=== PATIENT | male | born 1980 | race Caucasian/White ===

== ENCOUNTER 2020-02-01 19:57 | Observation (INO) | payer SELFPAY ==
[~2020-02-01 19:57] MED LIST: Iopamidol-370 76% 500 ML 1 ML ONE
[2020-02-01 20:17] LABS: #Eosinphils 0.2 thou/uL (0.0-0.7); #Lymphocytes 2.3 thou/uL (1.20-3.40); #Monocytes 0.7 thou/uL (0.11-0.59); #Neutrophils 3.8 thou/uL (1.40-6.50); %Basophils 0.5 % (0.0-1.0); %Eosinophils 3.1 % (0.0-10.0); %Lymphocytes 32.6 % (21.0-51.0); %Monocytes 9.5 % (0.0-10.0); %Neutrophils 54.3 % (42.0-75.0); Hemoglobin 13.6 g/dL (14.0-18.0); Mean Corpuscular HGB CONC 35.5 g/dL (32.0-36.0); Mean Corpuscular Hemoglobin 33.4 pg (27.0-31.0); Mean Corpuscular Volume 94.2 fL (78.0-98.0); Mean Platelet Volume 9.1 fL (7.4-10.4); Platelet Count 184 thou/uL (130-400); RBC Distribution Width 13.9 % (11.5-14.5); Red Blood Cell (RBC) Count 4.06 mill/uL (4.70-6.10)
[2020-02-01 20:38] LABS: ALT (SGPT) 20 U/L (8-55); AST (SGOT) 10 U/L (5-34); Albumin 3.8 g/dL (3.5-5.0); Alkaline Phosphatase 62 U/L (40-110); Anion Gap 11 mmol/L (10-20); BUN (Urea Nitrogen) 10 mg/dL (8.9-20.6); Bilirubin, Total 0.5 mg/dL (0.2-1.2); Calc. Creatinine Clearance 0 mL/min (70-130); Calcium 8.5 mg/dL (7.8-10.44); Carbon Dioxide 26 mmol/L (22-29); Chloride 104 mmol/L (98-107); Estimated GFR-MDRD 79; Globulin 2.9 g/dL (2.4-3.5); Glucose 109 mg/dL (70-105); Potassium 3.7 mmol/L (3.5-5.1); Protein, Total 6.7 g/dL (6.0-8.3); Sodium 137 mmol/L (136-145)
[2020-02-01] MEDS ORDERED: Morphine 4 MG/ML VIAL ONE ×2 (21:05→21:50)
[2020-02-01] MEDS ORDERED: Ondansetron PF 4 MG/2 ML Vial ONE (21:05)
--- NOTE | 2020-02-01 22:12 | CT ---
CT ABDOMEN AND PELVIS WITH IV CONTRAST: History: Right abdominal pain. Comparison: None. FINDINGS: Lung bases are clear. Liver, spleen, pancreas unremarkable. The gallbladder is mildly distended. There is pericholecystic fluid. No gallstones are identified. Ho wever, cholesterol stones would not be apparent on CT. No biliary duct dilatation. Small bowel loops normal caliber. The right colon is folded and cecum is the right upper abdomen. Shanthi endix is not definitely identified, however, there are no secondary signs of appendicitis. There is a large left inguinal hernia. Left colon and sigmoid colon herniates into this large inguina l hernia and resides within the left scrotum. No definite evidence of bowel obstruction identified. Kidneys and urinary tract unremarkable. There appears to be incomplete rotation of the left kidney. U rinary bladder shows mild bladder wall thickening. Correlate for cystitis. The prostate is mildly pro minent. Aorta normal caliber. No mass. No free fluid. IMPRESSION: 1. Large left inguinal hernia. Left colon and sigmoid colon herniate into this defect and colon is se en within the left scrotum. No definite bowel obstruction apparent. 2. The gallbladder is distended and there is pericholecystic fluid and edema. Correlate with gallblad mariola ultrasound. POS: AGW
[2020-02-01 23:06] LABS: Bilirubin Negative (Negative); Blood, Urine Negative (Negative); Clarity Clear (Clear); Glucose, Urine (Dipstick) Normal (Negative); Leukocyte Negative Leu/uL (Negative); Nitrite Negative (Negative); Protein, Urine (Dipstick) Negative (Neg-Trace); Urobilinogen Normal mg/dL (Less than 2)
--- NOTE | 2020-02-01 23:49 | ULT ---
GALLBLADDER ULTRASOUND: Indication: Abdominal pain. FINDINGS: The gallbladder is distended. Dense echogenic sludge and gravel layered within the gallbladder. Gallb ladder wall is mildly thickened and there is pericholecystic edema consistent with the CT findings. Common bile duct is normal caliber measured at 5 mm. Visualized pancreas unremarkable. Liver shows minimal increase in the intrahepatic biliary ducts. The liver is otherwise unremarkable. The right kidney is unremarkable. Positive Claudio sign is described. IMPRESSION: Abnormal gallbladder ultrasound. The gallbladder is distended. Dense sludge, gravel, and small stones layer dependently in the gallbladder. There is gallbladder wall thickening and pericholecystic edema with positive Claudio's sign. POS: AGW
[2020-02-02] MEDS ORDERED: Morphine 2 MG/ML SYRINGE SLOW IVP PRN ×2 (00:06→10:59)
[2020-02-02] MEDS ORDERED: Ondansetron ODT 4 MG TAB SL PRN (00:06)
[2020-02-02] MEDS: Sodium Chloride 0.9% 1,000 ML IV SCH ×2 (00:44→05:54)
[2020-02-02] MEDS: Morphine 4 MG/ML VIAL SLOW IVP PRN ×2 (00:46→05:55)
[2020-02-02] MEDS: Ondansetron PF 4 MG/2 ML Vial IVP PRN ×2 (00:46→05:54)
[2020-02-02] MEDS: Piperacillin/Tazobactam 3.375 GM in Sodium Chloride 0.9% 100 ML IVPB SCH ×2 (00:47→11:39)
[2020-02-02 01:07] VITALS: BMI 24.3
[2020-02-02] MEDS ORDERED: Lidocaine 1% w/Epinephrine 1:100K 20 ML VIAL ONE (06:54)
[2020-02-02] MEDS ORDERED: Bupivacaine 0.25% HCL 30 ML VIAL ONE (06:54)
[2020-02-02] MEDS ORDERED: Fentanyl 100 MCG/2 ML VIAL ONE ×2 (07:13→10:14)
[2020-02-02] MEDS ORDERED: Lidocaine 2% Jelly 5 ML TUBE ONE (07:13)
--- NOTE | 2020-02-02 07:56 | HP ---
CHIEF COMPLAINT: Right-sided abdominal pain. HISTORY OF PRESENT ILLNESS: Mr. Mata is a 39-year-old man, who has a several- day history of right-sided abdominal pain, which has been growing steadily worse. He also has nausea and vomiting, especially with any attempts to eat. He denies any fevers or chills. He came to the emergency room, where he was diagnosed with acute cholecystitis based on CT and ultrasound findings. He has received pain medications, but continues to have pain in the right upper quadrant. PAST MEDICAL HISTORY: HIV, which is well controlled and hypertension. PAST SURGICAL HISTORY: None. FAMILY HISTORY: Noncontributory. SOCIAL HISTORY: He smokes half pack a day. Does not drink heavily or use illicit drugs. ALLERGIES: HE HAS NO KNOWN DRUG ALLERGIES. OUTPATIENT MEDICATIONS: Include 1. Amlodipine 10 mg p.o. daily. 2. Biktarvy 50/200/25 mg p.o. daily. REVIEW OF SYSTEMS: Ten system review of systems is negative except per HPI. PHYSICAL EXAMINATION: VITAL SIGNS: The patient is afebrile. Heart rate 60, respirations 16, 98% saturated on room air, and blood pressure 131/85. GENERAL: Reveals a pleasant man, in no acute distress. He is not flushed or toxic in appearance. He is not jaundiced or icteric. HEENT: Unremarkable. NECK: Supple without lymphadenopathy or thyroid nodules. HEART: Regular in its rate and rhythm without murmurs, rubs, or gallops. LUNGS: Clear to auscultation bilaterally. ABDOMEN: Soft and nondistended. He has severe tenderness in the right upper quadrant, but is otherwise nontender to palpation. There is fullness in the right upper quadrant consistent with a distended gallbladder. He has a large left inguinal hernia, which is only partially reducible. He states that this has been out for some time, and he has had a hernia for seven years, but it does not bother him except for when he is active. EXTREMITIES: Warm and well perfused without edema. NEURO: No focal deficits. PSYCHIATRIC: Alert, oriented, and appropriate. LABORATORY DATA: White count is normal. LFTs are normal. CT and ultrasound images are reviewed, and I agree with the written report. He has a very distended thick-walled gallbladder with pericholecystic fluid, but the bile duct is normal caliber. On ultrasound, he has a lot of sludge as well as some shadowing stones. ASSESSMENT: Acute cholecystitis and chronic large left inguinal hernia. I have recommended laparoscopic cholecystectomy for symptomatic relief of cholecystitis. There is about a 30% chance that the gallbladder has bacteria in it, so I do not recommend repair of his large chronic left inguinal hernia under the same anesthesia due to the risk of mesh infection. However, his left inguinal hernia should be repaired as soon as it can be scheduled electively. He will likely require preoperative bowel prep due to the large amount of colon in the hernia. The patient is in agreement with this plan. The inherent risks of laparoscopic cholecystectomy were discussed with him. These include, but are not limited to, bleeding, infection, risks of anesthesia, damage to nearby structures including bowel, liver, and bile duct, and need for open surgery. He understands and accepts these risks and wishes to proceed. All his questions were answered. He is on scheduled [facility]. Job ID: [id number] MTDD
[2020-02-02] MEDS ORDERED: Piperacillin/Tazobactam 3.375 GM VIAL ONE (08:39)
[2020-02-02] MEDS ORDERED: PROVENTIL INHALER 6.7 G (200 INHALATIONS) INH PRN (09:47)
[2020-02-02] MEDS ORDERED: Ondansetron HCl/PF 4 MG/2 ML Vial IVP PRN (09:47)
[2020-02-02] MEDS ORDERED: Promethazine HCl 25 MG/ML VIAL IM PRN (09:47)
[2020-02-02] MEDS ORDERED: Promethazine HCl 25 MG/ML VIAL SLOW IVP PRN (09:47)
[2020-02-02] MEDS ORDERED: traMADol HCl 50 MG TAB PO PRN ×4 (09:54→10:59)
[2020-02-02] MEDS ORDERED: Ibuprofen 200 MG TAB PO PRN ×2 (09:54→10:59)
[2020-02-02] MEDS ORDERED: Acetaminophen 325 MG TAB PO PRN ×4 (09:54→10:59)
[2020-02-02] MEDS ORDERED: HYDROcodone/Acetaminophen 5/325 mg Tablet PO PRN ×4 (09:54→10:59)
[2020-02-02] MEDS ORDERED: Ibuprofen 600 MG TAB PO PRN ×2 (09:54→10:59)
[2020-02-02] MEDS ORDERED: Ibuprofen 800 MG TAB PO PRN ×2 (09:54→10:59)
[2020-02-02] MEDS ORDERED: Morphine 4 MG/ML VIAL SLOW IVP PRN ×2 (09:54→10:59)
[2020-02-02] MEDS ORDERED: Promethazine 25 MG TAB PO PRN ×2 (09:57→10:59)
--- NOTE | 2020-02-02 10:08 | PDOC.OP ---
Operative Note - Operative Note Operative Note: DATE OF PROCEDURE: 02/02/2020 PROCEDURES: Laparoscopic cholecystectomy. SURGEON: Mela Sultana M.D. PREOPERATIVE DIAGNOSIS: Cholelithiasis and cholecystitis POSTOPERATIVE DIAGNOSIS: Cholelithiasis and cholecystitis FINDINGS: Extremely distended edematous thick-walled gallbladder. HISTORY: Patient with symptoms and radiographic findings of acute cholecystitis. Laparoscopic cholecystectomy was recommended for symptomatic relief. Preoperative LFTs were normal and bile duct was normal caliber on preoperative imaging. PROCEDURE: After informed consent was obtained and appropriate preoperative antibiotics were administered, the patient was taken to the operating room and placed in the supine position and general endotracheal anesthesia was administered. The stomach was decompressed with an OG tube and the abdomen was prepped and draped in standard sterile fashion. Local anesthesia was infused to the skin and subcutaneous tissues at the umbilical level. A transverse skin incision was made. The fascia was elevated and a Veress needle was placed into the abdominal cavity without difficulty. Opening pressure was less than 5 but rapidly sunita to 15 suggesting insufflation into the preperitoneal space. Veress needle was withdrawn and dissection carried down to the fascia which was incised. Stay sutures were placed and the peritoneum was grasped elevated into the wound and incised under direct vision. A trocar was placed into the peritoneal cavity and carbon dioxide gas insufflated intra-abdominal pressure of 15 which the patient tolerated well. The abdominal cavity was carefully examined. There was no evidence of Veress needle or of trocar injury. Local anesthesia was infused to the skin and subcutaneous tissues at the epigastric, right upper quadrant, and right lateral abdominal sites and trocars were placed under direct vision of the laparoscope. The gallbladder was massively distended and too taut to grasp so over 100 mL of clear green bile were aspirated following which the gallbladder was soft enough to grasp. The fundus of the gallbladder was grasped and retracted superiorly. The infundibulum was grasped and retracted laterally. The serosa was stripped inferiorly at the level of the neck of the gallbladder exposing the cystic duct and artery which were traced clearly to their insertion in the gallbladder. Critical view of safety was obtained and the cystic duct and artery were clipped and divided between clips. The gallbladder was then dissected free of the gallbladder bed using hook electrocautery. Prior to complete removal of the gallbladder from the gallbladder bed, the area of the cystic duct and artery stumps was examined. The clips were in good position completely across these structures and there was no bleeding and no leakage of bile. The gallbladder was then placed into an EndoCatch bag and drawn out through the epigastric incision. This required extension of the skin incision as the thickened gallbladder was too large to remove through the original skin incision. The epigastric trocar was replaced and the operative site easily irrigated to clear. There was no significant bleeding or spillage of bile. The epigastric trocar was removed and the fascia closed under direct laparoscopic vision with a 0 Vicryl suture on a GraNee needle in a [id number] manner with excellent technical result. The right upper quadrant and right lateral abdominal trocars were removed and hemostasis verified. Carbon dioxide gas was allowed to desufflate through the umbilical trocar which was then removed. The fascia was closed with the stay suture with excellent technical result. The skin incisions were closed with 4- 0 subcuticular Monocryl sutures and Dermabond dressings were placed. The patient was extubated and taken to the recovery room in good condition. There were no complications. ESTIMATED BLOOD LOSS: Minimal. SPECIMEN : Gallbladder and contents.
[2020-02-02] MEDS ORDERED: Ondansetron PF 4 MG/2 ML Vial IVP PRN (10:59)
[2020-02-02] MEDS ORDERED: Piperacillin/Tazobactam 3.375 GM in Sodium Chloride 0.9% 100 ML IVPB SCH ×3 (11:00→15:00)
[2020-02-02] MEDS: Morphine 2 MG/ML SYRINGE SLOW IVP PRN ×2 (11:13→16:32)
[2020-02-02] MEDS ORDERED: Polyethylene Glycol 3350 17 GM Packet PO SCH (11:45)
[2020-02-02] MEDS ORDERED: PHENYLEPHRINE-NS 100 MCG/ML 10 ML SYRINGE ONE (11:47)
[2020-02-02] MEDS ORDERED: Lidocaine 1% PF 5 ML VIAL ONE (11:47)
[2020-02-02] MEDS ORDERED: Ondansetron PF 4 MG/2 ML Vial ONE (11:47)
[2020-02-02] MEDS ORDERED: Glycopyrrolate 0.2 MG/ML 5 ML SYRINGE ONE ×2 (11:47)
[2020-02-02] MEDS ORDERED: EPHEDRINE 25 MG/5 ML SYRINGE ONE (11:47)
[2020-02-02] MEDS ORDERED: Dexamethasone 20 MG/5 ML VIAL ONE (11:47)
[2020-02-02] MEDS ORDERED: PROPOFOL 200 MG/20 ML VIAL ONE (11:47)
[2020-02-02] MEDS ORDERED: Rocuronium Bromide 10 MG/ML (10ML VIAL) ONE (11:47)
[2020-02-02] MEDS ORDERED: Succinylcholine Chloride 20 MG/ML 10 ml SYRINGE FS ONE (11:47)
[2020-02-02] MEDS ORDERED: Ketorolac Tromethamine 30 MG/ML VIAL ONE (11:47)
[2020-02-02 19:29] VITALS: BP 112/76; TEMP 97.9
[2020-02-03] MEDS ORDERED: Bictegrav/Emtricit/Tenofov Ala [Biktarvy 50-200-25 Mg Tablet] PO SCH (09:00)
[2020-02-03] MEDS ORDERED: Polyethylene Glycol 3350 17 GM Packet PO SCH (09:00)
[2020-02-03] MEDS ORDERED: Amlodipine 10 MG TAB PO SCH (09:00)
--- NOTE | 2020-02-04 11:49 | DIS ---
DATE OF ADMISSION: 02/01/2020 DATE OF DISCHARGE: 02/02/2020 FINAL DIAGNOSES: 1. Acute cholecystitis. 2. Chronic left inguinal hernia. 3. Human immunodeficiency virus. HISTORY: Mr. Mata is a 39-year-old man, who presented to the hospital with severe right upper quadrant pain and findings consistent with acute cholecystitis. He underwent laparoscopic cholecystectomy without event and was discharged home later that same day. He was advised to lift no more than 20 pounds for 2 weeks and to follow up in the [facility] in 2 weeks' time. He has a chronic left inguinal hernia, which will require elective outpatient repair as well. This is minimally symptomatic but does contain several loops of bowel. DISCHARGE MEDICATIONS: Include, 1. Tylenol as needed. 2. Hydrocodone as needed. 3. Motrin as needed. 4. Tramadol as needed. 5. Phenergan as needed. 6. He is to resume his outpatient medications of Biktarvy 50/200/25 p.o. daily. 7. Amlodipine daily. 8. Albuterol inhaler as needed. Job ID: [id number] [facility]
== END 2020-02-02 21:15 | disposition home or self-care (01) ==
LOC: ERS 19:57 → SURG A 23:27
PROVIDERS: ADMIT Surgery; ATTEND Surgery
PROC: 0FT44ZZ Resection of Gallbladder, Percutaneous Endoscopic Approach (ICD-10-PCS; principal; 2020-02-02)
DX: K80.12 Calculus of gallbladder with acute and chronic cholecystitis without obstruction (principal); K40.90 Unilateral inguinal hernia, without obstruction or gangrene, not specified as recurrent; I10 Essential (primary) hypertension; J45.909 Unspecified asthma, uncomplicated; F17.210 Nicotine dependence, cigarettes, uncomplicated; Z21 Asymptomatic human immunodeficiency virus [HIV] infection status; Z79.899 Other long term (current) drug therapy
CPT/HCPCS: 36415; 74177; 76705; 80053; 81003; 83690; 85025; 88304; 96361; 96365; 96366; 96374; 96375; 96376; G0378; J1100; J1885; J2001; J2270; J2405; J2543; J2704; J3010; J3490; Q9967; S0020